=== PATIENT | male | born 1995 ===

== ENCOUNTER 2021-07-14 16:41 | Emergency (ER) | payer SELFPAY ==
[~2021-07-14] VITALS: Ht 190.5 cm; Wt 99.8 kg
[2021-07-14 16:49] VITALS: BP 150/91
== END 2021-07-14 21:50 | disposition left against medical advice (07) ==
LOC: ER 16:41
DX: M79.674 Pain in right toe(s) (principal); Z53.21 Procedure and treatment not carried out due to patient leaving prior to being seen by health care provider